=== PATIENT | female | born 1990 | race African-American/Black ===

== ENCOUNTER 2022-01-15 15:32 | Emergency (ER) | payer OTHER, SELFPAY ==
--- NOTE | 2022-01-15 15:38 | ED.NAVMDI ---
HPI - Nausea/Vomiting/Diarrhea General Chief complaint: Nausea/Vomiting/Diarrhea <GRAZYNA Geiger Last Filed: 01/15/22 15:46> Stated complaint: vomiting <GRAZYNA Geiger Last Filed: 01/15/22 15:46> Time Seen by Provider: 01/15/22 17:45 <GRAZYNA Geiger Last Filed: 01/15/22 15:46> History of Present Illness HPI Narrative: Patient complained of several episodes of vomiting briefly this morning after she took Motrin for menstrual cramps, she came to the ER and was given a Zofran several hours ago and all symptoms resolved and she has been eating drinking and feels fine and is asymptomatic when I came to evaluate her She does not feel dizzy or weak, she has no nausea she has not vomited in as many hours and she never had diarrhea and she has no abdominal pain <GRAZYNA Parker Last Filed: 01/15/22 19:13> Related Data Home medications: Previous Rx's Medication Instructions Recorded ondansetron 4 mg disintegrating 4 mg PO Q6-8H PRN nausea and 01/15/22 tablet vomiting #10 tabs <GRAZYNA Geiger Last Filed: 01/15/22 15:46> Allergies/Adverse reactions: Allergies Allergy/AdvReac Type Severity Reaction Status Date / Time No Known Allergies Allergy Verified 01/15/22 15:43 <GRAZYNA Geiger Last Filed: 01/15/22 15:46> Review of Systems Review of Systems: Resolved episode of vomiting is the positive Negatives are no fever no chills no dizziness no weakness no fainting no feeling faint no headache no neck pain no stiff neck no chest pain no shortness of breath no abdominal pain no nausea vomiting or diarrhea, no dysuria no frequency <GRAZYNA Parker Last Filed: 01/15/22 19:13> Yes all other systems are reviewed and are negative <GRAZYNA Parker Last Filed: 01/15/22 19:13> [facility] Past Medical History Source: nursing notes reviewed <GRAZYNA Parker Last Filed: 01/15/22 19:13> Social History Social History: Social History Advance Directives: No Advance Directives Information Provided: Yes <GRAZYNA Geiger Last Filed: 01/15/22 15:46> Physical Exam Vital Signs: Vital Signs: Last Vital Signs Temp 97.0 F 01/15/22 15:40 Pulse 66 01/15/22 15:40 Resp 22 H 01/15/22 15:40 BP 136/75 01/15/22 15:40 Pulse Ox 99 01/15/22 15:40 O2 Del Method 01/15/22 15:40 BMI result Body Mass Index 26.4 <GRAZYNA Geiger - Last Filed: 01/15/22 15:46> Vital Signs: Last Vital Signs Temp 97.0 F 01/15/22 15:40 Pulse 66 01/15/22 15:40 Resp 22 H 01/15/22 15:40 BP 136/75 01/15/22 15:40 Pulse Ox 99 01/15/22 15:40 O2 Del Method 01/15/22 15:40 BMI result Body Mass Index 26.4 <GRAZYNA Parker - Last Filed: 01/15/22 19:13> General appearance comfortable cooperative cheerful and relaxed The eyes anicteric no pallor The pharynx no redness swelling or exudate, mucous membranes are moist Neck is supple Chest is clear to auscultation bilateral Abdomen is soft and nontender Extremities full range of motion x4 Skin no rash Neuro no focal deficits <GRAZYNA Parker - Last Filed: 01/15/22 19:13> Course Course Course Narrative: YAA--31yo F presenting to the ED c/o nausea and vomiting since this morning s/p taking Advil on an empty stomach. Denies fever, chills, abdominal pain, dysuria/hematuria, EtOH or drug use Patient anxious and hyperventilating/thrashing around in triage, abdomen is soft and nontender. Is vomiting bile. Labs, UA, drug screen, IVF, Zofran, GI cocktail ordered <GRAZYNA Geiger - Last Filed: 01/15/22 15:46> RME--31yo F presenting to the ED c/o nausea and vomiting since this morning s/p taking Advil on an empty stomach. Denies fever, chills, abdominal pain, dysuria/hematuria, EtOH or drug use Patient anxious and hyperventilating/thrashing around in triage, abdomen is soft and nontender. Is vomiting bile. Labs, UA, drug screen, IVF, Zofran, GI cocktail ordered Patient is asymptomatic eating potato chips drinking a beverage playing with her child laughing and smiling A repeat abdominal exam is nontender Review of labs found no significant abnormality and well-appearing patient was discharged at this time easily tolerating p.o. and with no complaint <GRAZYNA Parker - Last Filed: 01/15/22 19:13> Medications Administered Discontinued Medications Generic Name Dose Route Start Last Admin Trade Name Freq PRN Reason Stop Dose Admin Al Hydroxide/Mg Hydroxide 30 ml 01/15/22 15:43 01/15/22 18:26 Magnesium Hydrox/Alum Hydrox 30 Ml Oral.Susp PO 01/15/22 15:44 Not Given ONCE ONE Famotidine 20 mg 01/15/22 15:43 01/15/22 18:26 Famotidine/Pf 20 Mg/2 Ml Vial IVPUSH 01/15/22 15:44 Not Given ONCE ONE Sodium Chloride 1,000 mls @ 999 mls/hr 01/15/22 15:45 01/15/22 18:26 Ns IV 01/15/22 16:45 Not Given .Q1H1M CAROLYN Ondansetron HCl 4 mg 01/15/22 15:43 01/15/22 15:49 Ondansetron Odt 4 Mg Tab.Rapdis TRANSLINGU 01/15/22 15:44 4 mg ONCE ONE Administration <GRAZYNA Geiger - Last Filed: 01/15/22 15:46> Medications Administered Discontinued Medications Generic Name Dose Route Start Last Admin Trade Name Freq PRN Reason Stop Dose Admin Al Hydroxide/Mg Hydroxide 30 ml 01/15/22 15:43 01/15/22 18:26 Magnesium Hydrox/Alum Hydrox 30 Ml Oral.Susp PO 01/15/22 15:44 Not Given ONCE ONE Famotidine 20 mg 01/15/22 15:43 01/15/22 18:26 Famotidine/Pf 20 Mg/2 Ml Vial IVPUSH 01/15/22 15:44 Not Given ONCE ONE Sodium Chloride 1,000 mls @ 999 mls/hr 01/15/22 15:45 01/15/22 18:26 Ns IV 01/15/22 16:45 Not Given .Q1H1M ACROLYN Ondansetron HCl 4 mg 01/15/22 15:43 01/15/22 15:49 Ondansetron Odt 4 Mg Tab.Keny GAYLEINGU 01/15/22 15:44 4 mg ONCE ONE Administration <GRAZYNA Parker - Last Filed: 01/15/22 19:13> MDM - Nausea/Vomiting/Diarrhea Lab Data Attestation: I reviewed the patient's lab results. <GRAZYNA Parker - Last Filed: 01/15/22 19:13> Result diagrams: : 01/15/22 16:35 01/15/22 16:35 <GRAZYNA Geiger - Last Filed: 01/15/22 15:46> Labs: Lab Results 01/15/22 01/15/22 01/15/22 Range/Units 16:35 16:35 16:35 WBC 7.5 (4.8-10.8) X10*3/uL RBC 4.80 (4.20-5.50) X10*6/uL Hgb 12.2 (12.0-16.0) g/dl Hct 38.1 (37.0-47.0) % MCV 79.4 L (80.0-98.0) fL MCH 25.4 L (27.0-33.0) pg MCHC 32.0 (31.0-35.0) g/dl RDW 15.4 (11.0-16.0) % Plt Count 281 (160-400) X10*3/uL MPV 9.7 (9.4-12.3) fL Immature Gran % (Auto) 0.3 (0.0-0.4) % Neut % (Auto) 83.1 H (45-73) % Lymph % (Auto) 12.7 L (20-40) % Kent % (Auto) 3.5 (2-11) % Eos % (Auto) 0.0 (0-4) % Baso % (Auto) 0.4 (0-2) % Lymph # (Auto) 1.0 L (1.2-4.9) X10*3/uL Kent # (Auto) 0.3 (0.1-1.2) X10*3/uL Eos # (Auto) 0.0 (0.0-0.4) X10*3/uL Baso # (Auto) 0.0 (0.0-0.2) X10*3/uL Abs Immat Gran (auto) 0.02 (0.00-0.03) X10*3/uL Absolute Neuts (auto) 6.2 (2.0-8.3) x10*3/uL Absolute Nucleated RBC 0.000 (0.0-0.012) X10*3/uL Nucleated RBC % (auto) 0.0 (0.0-0.2) /100WBC Sodium 140 (135-145) mmol/L Potassium 4.1 (3.3-5.1) mmol/L Chloride 107 (96-108) mmol/L Carbon Dioxide 20 L (22-29) mmol/L Anion Gap 17 (12-20) BUN 15 (9-16) mg/dL Creatinine 0.87 (0.5-1.4) mg/dL Estim Creat Clear Calc 75.9 Estimated GFR > 60 Random Glucose 105 (60-115) mg/dL Calcium 10.3 H (8.4-10.2) mg/dL Magnesium 1.8 (1.6-2.6) mg/dL Total Bilirubin 0.6 (0.0-1.0) mg/dL Direct Bilirubin 0.3 (0.0-0.5) mg/dL AST 24 (5-31) U/L ALT 14 (0-31) U/L Alkaline Phosphatase 69 (39-117) U/L Total Protein 8.2 H (6.5-8.0) g/dL Albumin 4.8 (3.5-5.0) g/dL Lipase 24 (8-78) U/L Urine Color Dark Yellow Urine Appearance Hazy Urine pH 6.0 (5.0-9.0) Ur Specific Baylis >= 1.030 H (1.005-1.025) Urine Protein 30 (1+) H (Neg-Trace) mg/dL Urine Glucose (UA) Negative (Negative) mg/dL Urine Ketones 15 (Negative) mg/dL Urine Blood Large (3+) H (Negative) Urine Nitrite Negative (Negative) Ur Leukocyte Esterase Small (1+) H (Negative) Urine RBC >20 H (0-2) /HPF Urine WBC 11-20 H (0-5) /HPF Ur Squamous Epith Cells 0-2 (0-2) /HPF Urine Bacteria None Seen (None Seen) Hyaline Casts 0-2 (0-2) /LPF Urine Test (NEGATIVE) Urine Opiates Screen (Not Detect) Urine Fentanyl Screen (Not Detect) Ur Barbiturates Screen (Not Detect) Ur Phencyclidine Scrn (Not Detect) Ur Amphetamines Screen (Not Detect) U Benzodiazepines Scrn (Not Detect) Urine Cocaine Screen (Not Detect) U Marijuana (THC) Screen (Not Detect) 01/15/22 01/15/22 Range/Units 16:35 16:35 WBC (4.8-10.8) X10*3/uL RBC (4.20-5.50) X10*6/uL Hgb (12.0-16.0) g/dl Hct (37.0-47.0) % MCV (80.0-98.0) fL MCH (27.0-33.0) pg MCHC (31.0-35.0) g/dl RDW (11.0-16.0) % Plt Count (160-400) X10*3/uL MPV (9.4-12.3) fL Immature Gran % (Auto) (0.0-0.4) % Neut % (Auto) (45-73) % Lymph % (Auto) (20-40) % Kent % (Auto) (2-11) % Eos % (Auto) (0-4) % Baso % (Auto) (0-2) % Lymph # (Auto) (1.2-4.9) X10*3/uL Kent # (Auto) (0.1-1.2) X10*3/uL Eos # (Auto) (0.0-0.4) X10*3/uL Baso # (Auto) (0.0-0.2) X10*3/uL Abs Immat Gran (auto) (0.00-0.03) X10*3/uL Absolute Neuts (auto) (2.0-8.3) x10*3/uL Absolute Nucleated RBC (0.0-0.012) X10*3/uL Nucleated RBC % (auto) (0.0-0.2) /100WBC Sodium (135-145) mmol/L Potassium (3.3-5.1) mmol/L Chloride (96-108) mmol/L Carbon Dioxide (22-29) mmol/L Anion Gap (12-20) BUN (9-16) mg/dL Creatinine (0.5-1.4) mg/dL Estim Creat Clear Calc Estimated GFR Random Glucose (60-115) mg/dL Calcium (8.4-10.2) mg/dL Magnesium (1.6-2.6) mg/dL Total Bilirubin (0.0-1.0) mg/dL Direct Bilirubin (0.0-0.5) mg/dL AST (5-31) U/L ALT (0-31) U/L Alkaline Phosphatase (39-117) U/L Total Protein (6.5-8.0) g/dL Albumin (3.5-5.0) g/dL Lipase (8-78) U/L Urine Color Urine Appearance Urine pH (5.0-9.0) Ur Specific Baylis (1.005-1.025) Urine Protein (Neg-Trace) mg/dL Urine Glucose (UA) (Negative) mg/dL Urine Ketones (Negative) mg/dL Urine Blood (Negative) Urine Nitrite (Negative) Ur Leukocyte Esterase (Negative) Urine RBC (0-2) /HPF Urine WBC (0-5) /HPF Ur Squamous Epith Cells (0-2) /HPF Urine Bacteria (None Seen) Hyaline Casts (0-2) /LPF Urine Test NEGATIVE (NEGATIVE) Urine Opiates Screen Not Detected (Not Detect) Urine Fentanyl Screen Not Detected (Not Detect) Ur Barbiturates Screen Not Detected (Not Detect) Ur Phencyclidine Scrn Not Detected (Not Detect) Ur Amphetamines Screen Not Detected (Not Detect) U Benzodiazepines Scrn Not Detected (Not Detect) Urine Cocaine Screen Not Detected (Not Detect) U Marijuana (THC) Screen POSITIVE H (Not Detect) <GRAZYNA Geiger - Last Filed: 01/15/22 15:46> Lab Results 01/15/22 01/15/22 01/15/22 Range/Units 16:35 16:35 16:35 WBC 7.5 (4.8-10.8) X10*3/uL RBC 4.80 (4.20-5.50) X10*6/uL Hgb 12.2 (12.0-16.0) g/dl Hct 38.1 (37.0-47.0) % MCV 79.4 L (80.0-98.0) fL MCH 25.4 L (27.0-33.0) pg MCHC 32.0 (31.0-35.0) g/dl RDW 15.4 (11.0-16.0) % Plt Count 281 (160-400) X10*3/uL MPV 9.7 (9.4-12.3) fL Immature Gran % (Auto) 0.3 (0.0-0.4) % Neut % (Auto) 83.1 H (45-73) % Lymph % (Auto) 12.7 L (20-40) % Kent % (Auto) 3.5 (2-11) % Eos % (Auto) 0.0 (0-4) % Baso % (Auto) 0.4 (0-2) % Lymph # (Auto) 1.0 L (1.2-4.9) X10*3/uL Kent # (Auto) 0.3 (0.1-1.2) X10*3/uL Eos # (Auto) 0.0 (0.0-0.4) X10*3/uL Baso # (Auto) 0.0 (0.0-0.2) X10*3/uL Abs Immat Gran (auto) 0.02 (0.00-0.03) X10*3/uL Absolute Neuts (auto) 6.2 (2.0-8.3) x10*3/uL Absolute Nucleated RBC 0.000 (0.0-0.012) X10*3/uL Nucleated RBC % (auto) 0.0 (0.0-0.2) /100WBC Sodium 140 (135-145) mmol/L Potassium 4.1 (3.3-5.1) mmol/L Chloride 107 (96-108) mmol/L Carbon Dioxide 20 L (22-29) mmol/L Anion Gap 17 (12-20) BUN 15 (9-16) mg/dL Creatinine 0.87 (0.5-1.4) mg/dL Estim Creat Clear Calc 75.9 Estimated GFR > 60 Random Glucose 105 (60-115) mg/dL Calcium 10.3 H (8.4-10.2) mg/dL Magnesium 1.8 (1.6-2.6) mg/dL Total Bilirubin 0.6 (0.0-1.0) mg/dL Direct Bilirubin 0.3 (0.0-0.5) mg/dL AST 24 (5-31) U/L ALT 14 (0-31) U/L Alkaline Phosphatase 69 (39-117) U/L Total Protein 8.2 H (6.5-8.0) g/dL Albumin 4.8 (3.5-5.0) g/dL Lipase 24 (8-78) U/L Urine Color Dark Yellow Urine Appearance Hazy Urine pH 6.0 (5.0-9.0) Ur Specific Baylis >= 1.030 H (1.005-1.025) Urine Protein 30 (1+) H (Neg-Trace) mg/dL Urine Glucose (UA) Negative (Negative) mg/dL Urine Ketones 15 (Negative) mg/dL Urine Blood Large (3+) H (Negative) Urine Nitrite Negative (Negative) Ur Leukocyte Esterase Small (1+) H (Negative) Urine RBC >20 H (0-2) /HPF Urine WBC 11-20 H (0-5) /HPF Ur Squamous Epith Cells 0-2 (0-2) /HPF Urine Bacteria None Seen (None Seen) Hyaline Casts 0-2 (0-2) /LPF Urine Test (NEGATIVE) Urine Opiates Screen (Not Detect) Urine Fentanyl Screen (Not Detect) Ur Barbiturates Screen (Not Detect) Ur Phencyclidine Scrn (Not Detect) Ur Amphetamines Screen (Not Detect) U Benzodiazepines Scrn (Not Detect) Urine Cocaine Screen (Not Detect) U Marijuana (THC) Screen (Not Detect) 01/15/22 01/15/22 Range/Units 16:35 16:35 WBC (4.8-10.8) X10*3/uL RBC (4.20-5.50) X10*6/uL Hgb (12.0-16.0) g/dl Hct (37.0-47.0) % MCV (80.0-98.0) fL MCH (27.0-33.0) pg MCHC (31.0-35.0) g/dl RDW (11.0-16.0) % Plt Count (160-400) X10*3/uL MPV (9.4-12.3) fL Immature Gran % (Auto) (0.0-0.4) % Neut % (Auto) (45-73) % Lymph % (Auto) (20-40) % Kent % (Auto) (2-11) % Eos % (Auto) (0-4) % Baso % (Auto) (0-2) % Lymph # (Auto) (1.2-4.9) X10*3/uL Kent # (Auto) (0.1-1.2) X10*3/uL Eos # (Auto) (0.0-0.4) X10*3/uL Baso # (Auto) (0.0-0.2) X10*3/uL Abs Immat Gran (auto) (0.00-0.03) X10*3/uL Absolute Neuts (auto) (2.0-8.3) x10*3/uL Absolute Nucleated RBC (0.0-0.012) X10*3/uL Nucleated RBC % (auto) (0.0-0.2) /100WBC Sodium (135-145) mmol/L Potassium (3.3-5.1) mmol/L Chloride (96-108) mmol/L Carbon Dioxide (22-29) mmol/L Anion Gap (12-20) BUN (9-16) mg/dL Creatinine (0.5-1.4) mg/dL Estim Creat Clear Calc Estimated GFR Random Glucose (60-115) mg/dL Calcium (8.4-10.2) mg/dL Magnesium (1.6-2.6) mg/dL Total Bilirubin (0.0-1.0) mg/dL Direct Bilirubin (0.0-0.5) mg/dL AST (5-31) U/L ALT (0-31) U/L Alkaline Phosphatase (39-117) U/L Total Protein (6.5-8.0) g/dL Albumin (3.5-5.0) g/dL Lipase (8-78) U/L Urine Color Urine Appearance Urine pH (5.0-9.0) Ur Specific [place]lis (1.005-1.025) Urine Protein (Neg-Trace) mg/dL Urine Glucose (UA) (Negative) mg/dL Urine Ketones (Negative) mg/dL Urine Blood (Negative) Urine Nitrite (Negative) Ur Leukocyte Esterase (Negative) Urine RBC (0-2) /HPF Urine WBC (0-5) /HPF Ur Squamous Epith Cells (0-2) /HPF Urine Bacteria (None Seen) Hyaline Casts (0-2) /LPF Urine Test NEGATIVE (NEGATIVE) Urine Opiates Screen Not Detected (Not Detect) Urine Fentanyl Screen Not Detected (Not Detect) Ur Barbiturates Screen Not Detected (Not Detect) Ur Phencyclidine Scrn Not Detected (Not Detect) Ur Amphetamines Screen Not Detected (Not Detect) U Benzodiazepines Scrn Not Detected (Not Detect) Urine Cocaine Screen Not Detected (Not Detect) U Marijuana (THC) Screen POSITIVE H (Not Detect) <GRAZYNA Parker - Last Filed: 01/15/22 19:13> Discharge Plan Discharge Clinical Impression: Vomiting <GRAZYNA Geiger Last Filed: 01/15/22 15:46> Patient Disposition: Home, Self-Care <GRAZYNA Geiger Last Filed: 01/15/22 15:46> Additional Instructions: Right now the vomiting is gone, you have been eating and drinking and feel fine It is possible that the vomiting episode was from taking Motrin on an empty stomach, so it take a little bit of food when you take Motrin Drink plenty of fluids Return to the ER any time for any worse condition or any concerns If needed in the future I wrote for some nausea pills called Zofran <GRAZYNA Geiger Last Filed: 01/15/22 15:46> Prescriptions: New ondansetron 4 mg tablet,disintegrating 4 mg PO Q6-8H PRN (Reason: nausea and vomiting) Qty: 10 0RF <GRAZYNA Geiger Last Filed: 01/15/22 15:46> Interventions: ED Discharge Assessment Last Done: 01/15/22 18:28 <GRAZYNA Geiger Last Filed: 01/15/22 15:46> Discharge Date/Time: 01/15/22 18:28 <GRAZYNA Geiger Last Filed: 01/15/22 15:46>
[2022-01-15 15:40] VITALS: BP 136/75; PULSE 66; RESP 22; TEMP 36.1; O2SAT 99; BMI 26.4
[2022-01-15] MEDS: Ondansetron ODT 4 MG TAB.RAPDIS TRANSLINGU (15:49)
[2022-01-15 16:41] LABS: MANUAL DIFF FLAG NO
[2022-01-15 16:43] LABS: Basophils Percent Auto 0.4 % (0-2); Hematocrit 38.1 % (37.0-47.0); Hemoglobin 12.2 g/dl (12.0-16.0); Imm Gran Abs Auto 0.02 X10*3/uL (0.00-0.03); Imm Gran Pct Auto 0.3 % (0.0-0.4); Lymphocytes Percent Auto 12.7 % (20-40); Mean Corpuscular Hemoglobin 25.4 pg (27.0-33.0); Mean Corpuscular Volume 79.4 fL (80.0-98.0); Mean Platelet Volume 9.7 fL (9.4-12.3); Monocytes Absolute Auto 0.3 X10*3/uL (0.1-1.2); Monocytes Percent Auto 3.5 % (2-11); Neutrophils Absolute Auto 6.2 x10*3/uL (2.0-8.3); Neutrophils Percent Auto 83.1 % (45-73); Platelet Count 281 X10*3/uL (160-400); Red Cell Distribution Width 15.4 % (11.0-16.0); White Blood Count 7.5 X10*3/uL (4.8-10.8)
[2022-01-15 16:56] LABS: Amphetamine Screen Urine Not Detected (Not Detect); Barbiturates, Urine Not Detected (Not Detect); Benzodiazepines Screen Urine Not Detected (Not Detect); Cannabinoid Screen Urine POSITIVE (Not Detect); Cocaine Screen Urine Not Detected (Not Detect); Fentanyl, urine Not Detected (Not Detect); Opiate Screen Urine Not Detected (Not Detect); Phencyclidine Screen Urine Not Detected (Not Detect)
[2022-01-15 16:58] LABS: UPreg QC Valid YES; Urine Pregnancy NEGATIVE (NEGATIVE)
[2022-01-15 17:03] LABS: Alanine Aminotransferase 14 U/L (0-31); Alkaline Phosphatase 69 U/L (39-117); Anion Gap 17 (12-20); Aspartate Amino Transferase 24 U/L (5-31); Bilirubin Direct 0.3 mg/dL (0.0-0.5); Bilirubin Total 0.6 mg/dL (0.0-1.0); Blood Urea Nitrogen 15 mg/dL (9-16); Calcium 10.3 mg/dL (8.4-10.2); Carbon Dioxide 20 mmol/L (22-29); Chloride 107 mmol/L (96-108); Creatinine Clr Calc Pharmacy 75.9; Estimated Glomerular Filt Rate > 60; Glucose Random 105 mg/dL (60-115); Lipase 24 U/L (8-78); Magnesium 1.8 mg/dL (1.6-2.6); Potassium 4.1 mmol/L (3.3-5.1); Sodium 140 mmol/L (135-145); Total Protein 8.2 g/dL (6.5-8.0)
[2022-01-15 17:10] LABS: Albumin Level 4.8 g/dL (3.5-5.0)
[2022-01-15 17:11] LABS: Color Urine Dark Yellow; Glucose Urine UA Negative (Negative); Leukocyte Esterase Urine Small (1+) (Negative); Nitrite Urine Negative (Negative); UMIC TRIGGER UACC YES; Urine Blood Large (3+) (Negative); Urine Ketones 15 mg/dL (Negative); Urine Protein 30 (1+) mg/dL (Neg-Trace)
[2022-01-15 17:40] LABS: Bacteria Urine None Seen (None Seen); Hyaline Casts Urine 0-2 /LPF (0-2); RBC Urine >20 /HPF (0-2); Squamous Epithelial Cell Urine 0-2 /HPF (0-2); UACC Culture Trigger YES
[2022-01-15 17:41] LABS: Specific Gravity - Urine >= 1.030 (1.005-1.025)
[2022-01-15 18:01] LABS: Appearance Urine Hazy
--- NOTE | 2022-01-15 18:27 | PC.NURSE ---
Medications not given per GRAZYNA Packer. Medications were ordered in triage prior to pt getting a room. When pt got to room, provider felt that pt did not need the medications
== END 2022-01-15 18:28 | disposition home or self-care (01) ==
PROVIDERS: Physician Assistant; Emergency Provider Emergency Medicine
DX: R11.2 Nausea with vomiting, unspecified (principal); R19.7 Diarrhea, unspecified; Z79.899 Other long term (current) drug therapy
CPT/HCPCS: 36415; 80048; 80076; 80307; 81001; 81003; 81025; 83690; 83735; 85025; 87086; 99282; 99283

== ENCOUNTER 2022-09-30 22:59 | Emergency (ER) | payer OTHER, SELFPAY ==
[2022-09-30 23:12] VITALS: BP 120/81; PULSE 69; RESP 18; TEMP 36.8; O2SAT 100; BMI 23.4
[2022-10-01 00:31] VITALS: BP 126/77; PULSE 61; RESP 14; TEMP 36.7; O2SAT 99
--- NOTE | 2022-10-01 01:29 | ED.HA ---
HPI - Headache General Chief Complaint: Headache Stated Complaint: migraine, vomiting Time Seen by Provider: 10/01/22 01:08 Source: patient Mode of arrival: ambulatory Limitations: no limitations History of Present Illness HPI Narrative: Patient history of migraine headache been having headache for last 2 days localized mostly in frontal bilateral temporal associated with nausea and photosensitivity vomited once Related Data Previous Rx's Medication Instructions Recorded ondansetron 4 mg disintegrating 4 mg PO Q6-8H PRN nausea and 01/15/22 tablet vomiting #10 tabs [id number]-[id number]-[id number] 1 tab PO Q6H PRN pain #20 tabs 10/01/22 50 mg-325 mg-40 mg tablet ondansetron 4 mg disintegrating 4 mg PO Q6-8H PRN nausea and 10/01/22 tablet vomiting #10 tabs sumatriptan succinate 50 mg tablet 50 mg PO Q2H PRN migraine headache 10/01/22 (Imitrex) #10 tabs Allergies Allergy/AdvReac Type Severity Reaction Status Date / Time No Known Allergies Allergy Verified 09/30/22 23:15 Review of Systems Review of Systems: Yes all other systems are reviewed and are negative [facility] Social History Social History Smoked in Last 30 Days: No Use of substances other than those prescribed or required for medical reasons: Yes Substance Use Type: Marijuana Advance Directives: No Advance Directives Information Provided: No Physical Exam Vital Signs: Vital Signs: Last Vital Signs Temp 98.0 F 10/01/22 00:31 Pulse 61 10/01/22 00:31 Resp 14 10/01/22 00:31 BP 126/77 10/01/22 00:31 Pulse Ox 99 10/01/22 00:31 O2 Del Method Room Air 10/01/22 00:31 BMI result Body Mass Index 23.4 Appearance: Alert. Oriented X3. No acute distress. Eyes: PERRLA, No Nystagmus ENT: Pharynx normal. Oral Mucosa moist no temporal artery tenderness Neck: Normal inspection. Neck supple. CVS: Normal heart rate and rhythm. Pulses normal. Respiratory: No respiratory distress. Equal air entry bilateral, no wheezing/rales/rhonchi Abdomen: Soft and nontender. Bowel sounds are present, no mass palpable, no CVA tenderness Skin: Skin warm and dry. Normal skin color. Normal skin turgor. Extremities: No lower extremity edema. No calf tenderness Neuro: Oriented X 3. No motor deficit. No sensory deficit.No cerebellar signs , cranial nerves II-XII intact Medications Administered Discontinued Medications Generic Name Dose Route Start Last Admin Trade Name Freq PRN Reason Stop Dose Admin Acetaminophen/Butalbital/Caffeine 1 tab 10/01/22 01:33 10/01/22 01:58 Butalb/Acetamin/Caff 50/325/40 Tablet PO 10/01/22 01:34 1 tab ONCE ONE Administration Ondansetron HCl 4 mg 10/01/22 01:33 10/01/22 01:58 Ondansetron Odt 4 Mg Tab.Rapdis TRANSLINGU 10/01/22 01:34 4 mg ONCE ONE Administration Sumatriptan Succinate 6 mg 10/01/22 01:33 10/01/22 01:58 Sumatriptan Succinate 6 Mg/0.5 Ml Vial SUBCUT 10/01/22 01:34 6 mg ONCE ONE Administration Medical Decision Making Medical Decision Making MDM Narrative: Patient migraine headache feeling much better after Imitrex and Fioricet discharge patient home Discharge Plan Discharge Clinical Impression: Migraine Patient Disposition: Home, Self-Care Instructions: Migraine Headache (ED) Additional Instructions: Take Imitrex as prescribed Fioricet for persistent headache Medicine for nausea and follow with PCP Prescriptions: New sumatriptan succinate [Imitrex] 50 mg tablet 50 mg PO Q2H PRN (Reason: migraine headache) Qty: 10 0RF Rx Instructions: do not exceed 2 doses per 24 hrs uxydgujrok-eowcyiofqgxom-krjw 50-325-40 mg tablet 1 tab PO Q6H PRN (Reason: pain) Qty: 20 0RF ondansetron 4 mg tablet,disintegrating 4 mg PO Q6-8H PRN (Reason: nausea and vomiting) Qty: 10 0RF No Action ondansetron 4 mg tablet,disintegrating 4 mg PO Q6-8H PRN (Reason: nausea and vomiting) Qty: 10 0RF
[2022-10-01] MEDS: SUMAtriptan succinate 6 MG/0.5 ML VIAL SUBCUT (01:58)
[2022-10-01] MEDS: Butalb/Acetamin/Caff 50/325/40 TABLET 1 TAB PO (01:58)
[2022-10-01] MEDS: Ondansetron ODT 4 MG TAB.RAPDIS TRANSLINGU (01:58)
--- NOTE | 2022-10-01 02:06 | PC.NURSE ---
pt medicated according to apr. lights dimmed. pt calm and cooperative
== END 2022-10-01 02:54 | disposition home or self-care (01) ==
PROVIDERS: Emergency Provider Internal Medicine
DX: G43.909 Migraine, unspecified, not intractable, without status migrainosus (principal); Z79.899 Other long term (current) drug therapy
CPT/HCPCS: 96372; 99284; J3030

== ENCOUNTER 2023-02-25 18:35 | Emergency (ER) | payer OTHER, SELFPAY ==
--- NOTE | ~2023-02-25 | XR_ITS ---
EXAMINATION: CHEST 2 VIEWS CLINICAL INFORMATION: productive cough. COMPARISON: No recent pertinent prior studies are available for comparison. TECHNIQUE: PA and lateral views of the chest obtained. FINDINGS: The lungs are well expanded. No focal infiltrate, effusion, edema, or pneumothorax. Cardiac and mediastinal silhouettes are within normal limits for technique. No acute bony abnormality seen XR/XR chest 2V IMPRESSION: No evidence of acute disease
--- NOTE | 2023-02-25 18:37 | ECG_ITS ---
Test Reason : COUGH/CHEST PAIN Blood Pressure : / mmHG Vent. Rate : 063 BPM Atrial Rate : 063 BPM P-R Int : 158 ms QRS Dur : 082 ms QT Int : 378 ms P-R-T Axes : 043 -06 022 degrees QTc Int : 386 ms Normal sinus rhythm with sinus arrhythmia Possible Anterior infarct , age undetermined - could be related to body habitus and lead placement Abnormal ECG No previous ECGs available Referred By: Generic ED Physician Electronically Signed By:FLOR MEJIA
--- NOTE | 2023-02-25 18:47 | ED_ITS ---
HPI - General Adult General Chief complaint: Upper Respiratory Symptoms Stated complaint: chills, headache, CP, hot/ cold Time Seen by Provider: 02/25/23 21:26 Source: patient Mode of arrival: ambulatory Limitations: no limitations History of Present Illness HPI narrative: Patient is a 32 year old assigned female at with no reported medical history presenting to the emergency department today with a cough, chills, and a sore throat. Patient states that over the last few days she has had a cough, sore throat, and chills. Patient denies any dizziness, lightheadedness, abdominal pain, nausea, vomiting, fever, blurry vision, double vision, loss of vision, chest pain, difficulty breathing, shortness of breath, back pain, night sweats, pain with urination, increased urinary frequency, increased urinary urge ncy, blood in her urine or stool, syncope or a near syncopal episode, recent trauma or falls, bowel incontinence, bladder incontinence, bowel retention, bladder retention, or any other complaints at this time. Onset (ago): day(s) Severity: mild Severity scale (1-10): 2 Relieving factors: none Exacerbating factors: none Associated symptoms: cough and fever/chills Treatments prior to arrival: other (currently on Z-pack) Related Data Previous Rx's Medication Instructions Recorded ondansetron 4 mg disintegrating 4 mg PO Q6-8H PRN nausea and 01/15/22 tablet vomiting #10 tabs nmhfvfwygh-bzyapshwoawob-nprfmkdu 1 tab PO Q6H PRN pain #20 tabs 10/01/22 50 mg-325 mg-40 mg tablet ondansetron 4 mg disintegrating 4 mg PO Q6-8H PRN nausea and 10/01/22 tablet vomiting #10 tabs sumatriptan succinate 50 mg tablet 50 mg PO Q2H PRN migraine headache 10/01/22 (Imitrex) #10 tabs oseltamivir 75 mg capsule (Tamiflu) 75 mg PO DAILY 5 days #5 caps 02/25/23 Allergies Allergy/AdvReac Type Severity Reaction Status Date / Time No Known Allergies Allergy Verified 02/25/23 18:51 Review of Systems Constitutional: Constitutional: Reports no additional constitutional complaints, Reports chills, Denies fever(s) and Denies night sweats Eyes: Eyes: Reports no additional eye complaints, Denies blurry vision, Denies change in vision, Denies diplopia, Denies eye discharge, Denies loss of vision and Denies eye pain ENT: Denies dizziness and Reports sore throat Cardiovascular: Cardiovascular: Reports no additional cardiovascular complaints, Denies chest pain, Denies lightheadedness, Denies Loss of Consciousness and Denies dyspnea Respiratory: Respiratory: Reports no additional respiratory complaints, Reports cough and Denies dyspnea Gastrointestinal: Gastrointestinal: Reports no additional gastrointestinal complaints, Denies abdominal pain, Denies melena, Denies hematochezia, Denies change in bowel habits and Denies change in stool character Genitourinary: Genitourinary: Denies hematuria, Denies urinary frequency, Denies dysuria, Denies urinary incontinence, Denies urinary hesitancy and Denies urinary urgency Musculoskeletal: Musculoskeletal: Reports no additional musculoskeletal complaints, Denies numbness and Denies tingling Neurologic: Denies dizziness, Denies loss of vision, Denies numbness and Denies tingling Psychiatric: Psychiatric: Reports no additional psychiatric complaints Endocrine: Endocrine: Reports no additional endocrine complaints Hematologic/Lymphatic: Hematologic/Lymphatic: Reports no additional hematologic/lymphatic complaints Allergic/Immunologic: Allergic/Immunologic: Reports no additional allergic/immunologic complaints PMFSH Past Medical History Attestation statement: The following information was validated with the patient. Source: old records reviewed and nursing notes reviewed Social History Social History Smoked in Last 30 Days: No Use of substances other than those prescribed or required for medical reasons: No Substance Use Type: Marijuana Advance Directives: No Advance Directives Information Provided: No Patient : No Physical Exam ED Vital Signs: Vital Signs - 24 hr 02/25/23 18:49 02/25/23 20:52 02/25/23 20:52 Temperature 100.8 F H 98.8 F Pulse Rate 69 58 Respiratory Rate 20 16 Blood Pressure 139/64 110/69 Pulse Oximetry 99 100 97 Oxygen Delivery Method Room Air Room Air Room Air BMI result Body Mass Index 21.7 Const General: cooperative, no acute distress, alert and awake Nutritional Appearance: well nourished Orientation/consciousness: patient oriented x3 Limitations: no limitations HENMT Head: Yes normal to inspection and Yes atraumatic Ears: hearing grossly normal bilaterally and external ears normal General nose exam: Normal external nose present, no nasal discharge noted and no epistaxis Face and sinus: Yes normal facial exam, No abrasion and No laceration Mouth: Normal oral and palatal mucosa present, no drooling and no muffled voice Eyes General: appearance normal, both eyes and all related structures Periorbital: periorbital findings normal Eyelids: Yes eyelids normal Conjunctivae: conjunctivae normal Pupils: Equal, round and reactive pupils present EOM: EOMs intact bilaterally Neck Neck: Yes normal visual inspection, Yes full ROM and Yes no lymphadenopathy Chest Chest palpation & inspection: normal inspection of the chest Resp Effort & Inspection: normal respiratory effort and able to speak in complete sentences GI Inspection: Yes normal to inspection Neuro General: patient oriented x3 and moves all extremities Cranial nerves: Yes Equal, round and reactive pupils present Cognition (Neuro): normal cognition Motor exam (neuro): 5/5 motor strength present throughout Sensory Exam: Normal double simultaneous stimulation for sensation Coordination: bzjlwy-pq-qayn test normal Extrem General: Yes normal to inspection, Yes full ROM and Yes capillary refill normal Psych Appearance: grossly normal Mental Status: mental status grossly normal Affect: normal affect Attitude: cooperative Thought process: Normal thought process present Thought content: Normal thought content present Insight: Good insight present (Psych) Course Course Course Narrative: RME:?32 yo female here w/ chills, headache, cough productive of yellow sputum, body aches. endorses chest discomfort with coughing only. no chest pain. Reports sore throat last week. Seen at for this, taking zpak, 3 more doses left. Taking zyrtec at home. one episode of vomiting this morning. +sick contacts at work. febriile in triage. plan for serology, CXR, tylenol Full HPI, ROS and PE to be performed by the primary ED provider. Medications Administered Discontinued Medications Generic Name Dose Route Start Last Admin Trade Name Freq PRN Reason Stop Dose Admin Acetaminophen 975 mg 02/25/23 18:49 02/25/23 18:54 Acetaminophen 325 Mg Tablet PO 02/25/23 18:50 975 mg ONCE ONE Administration Medical Decision Making Medical Decision Making [facility] Narrative: Patient is a 32 year old assigned female at with no reported medical history presenting to the emergency department today with a cough, chills, and sore throat. Patient's physical exam was unremarkable. Patient's chest x-ray showed no acute process. Patient's COVID-19 and RSV tests were negative. Patient's influenza test was positive. I explained my physical exam findings as well as all test results to the patient. I answered all questions asked by the patient. I stressed the importance of the patient taking her medication as prescribed. I stressed the importance of the patient following up with her primary care provider. I stressed the importance of the patient returning to the emergency department immediately if her symptoms were to worsen or if she were to develop any dizziness, shortness of breath, difficulty breathing, chest pain, blurry vision, loss of vision, nausea, vomiting, abdominal pain, fever, chills, back pain, or any other complaints. Patient verbalized agreement and understanding with this treatment plan and discharge. Differential Diagnosis Differential Diagnoses: The differential diagnosis associated with the presentation includes Cough COVID-19 RSV Influenza Viral illness Pharyngitis Admission/Observation Consideration of admission/observation: Escalation of care including admission/observation considered Patient would have been admitted to the hospital had her work up had any findings where hospital admission was appropriate and her clinical presentation warranted hospital admission. Lab Data [facility] Lab Attestation statement: I reviewed the patient's lab results. My interpretation of these results are in the [facility] Rationale portion of this note. Labs: Lab Results 02/25/23 Range/Units 19:17 Influenza Type A (PCR) POSITIVE A (Negative) Influenza Type B (PCR) NEGATIVE (Negative) RSV RNA Qual (PCR) NEGATIVE (Negative) SARS-CoV-2 RNA (RT-PCR) NEGATIVE (Negative) Independent Interpretation I performed an independent interpretation of an: Plain X-Ray Interpretation: My interpretation is in agreement with the radiologist's impression of this imaging study. EXAMINATION: CHEST 2 VIEWS CLINICAL INFORMATION: productive cough. COMPARISON: No recent pertinent prior studies are available for comparison. TECHNIQUE: PA and lateral views of the chest obtained. FINDINGS: The lungs are well expanded. No focal infiltrate, effusion, edema, or pneumothorax. Cardiac and mediastinal silhouettes are within normal limits for technique. No acute bony abnormality seen XR/XR chest 2V IMPRESSION: No evidence of acute disease Dictated By: Julito Willard MD Signed By: Electronically signed by Julito Willard MD 02/25/231942 Radiology Impression Discussion of test interpretation with radiology: I have reviewed the radiologist's reading. Prescription Management I considered prescription management with: Antiviral (patient prescribed tamiflu) Discharge Plan Discharge Clinical Impression: Influenza Patient Disposition: Home, Self-Care Instructions: Influenza (DC) Additional Instructions: Follow up with your primary care provider. Return to the emergency department immediately if your symptoms worsen or if you develop any dizziness, shortness of breath, difficulty breathing, chest pain, blurry vision, loss of vision, nausea, vomiting, abdominal pain, fever, chills, back pain, or any other complaints. Prescriptions: New oseltamivir [Tamiflu] 75 mg capsule 75 mg PO DAILY 5 Days Qty: 5 0RF No Action ondansetron 4 mg tablet,disintegrating 4 mg PO Q6-8H PRN (Reason: nausea and vomiting) Qty: 10 0RF sumatriptan succinate [Imitrex] 50 mg tablet 50 mg PO Q2H PRN (Reason: migraine headache) Qty: 10 0RF Rx Instructions: do not exceed 2 doses per 24 hrs zypklptzrz-cunwqxzscqhdc-jgie 50-325-40 mg tablet 1 tab PO Q6H PRN (Reason: pain) Qty: 20 0RF ondansetron 4 mg tablet,disintegrating 4 mg PO Q6-8H PRN (Reason: nausea and vomiting) Qty: 10 0RF Referrals: [facility] [place]] (Call to establish and follow up with a primary care provider. If you already have a primary care provider, please follow up with them.) [facility]] (Call to establish and follow up with a primary care provider. If you already have a primary care provider, please follow up with them.) [facility] [[facility]] (Call to establish and follow up with a primary care provider. If you already have a primary care provider, please follow up with them.) Stand Alone Forms: Work/School Release Interventions: ED Discharge Assessment Last Done: 02/25/23 22:25 Discharge Date/Time: 02/25/23 22:15 Print Language: Wolof
[2023-02-25 18:49] VITALS: BP 139/64; PULSE 69; RESP 20; TEMP 38.2; O2SAT 99; BMI 21.7
[2023-02-25] MEDS: Acetaminophen 325 MG TABLET 975 MG PO (18:54)
[2023-02-25 20:06] LABS: Influenza A PCR POSITIVE (Negative); Influenza B PCR NEGATIVE (Negative); Resp Syncy Virus RNA Qual PCR NEGATIVE (Negative); SARS COV2 PCR INHOUSE NEGATIVE (Negative)
[2023-02-25 20:52] VITALS: BP 110/69; PULSE 58; RESP 16; TEMP 37.1; O2SAT 100; O2SAT 97
--- NOTE | 2023-02-25 20:54 | PC.NURSE ---
a&ox4, vss and up to date. pt comes in today d/t UR sx x 1 week. pt went to urgent care - tested for flu last week but came back negative. pt now aware that results today are positive for flu. pt's oral temperature decreased to 98.8 post medication administration. pt awaiting to be seen by provider at this time. no sob/wob noted. respirations even and unlabored.call ulrich placed within reach.
== END 2023-02-25 22:15 | disposition home or self-care (01) ==
PROVIDERS: Physician Assistant Medical; Emergency Provider Emergency Medicine
DX: J10.1 Influenza due to other identified influenza virus with other respiratory manifestations (principal); R05.9 Cough, unspecified; R07.89 Other chest pain; I49.9 Cardiac arrhythmia, unspecified; R51.9 Headache, unspecified; Z20.822 Contact with and (suspected) exposure to COVID-19; Z20.828 Contact with and (suspected) exposure to other viral communicable diseases
CPT/HCPCS: 0241U; 71046; 93005; 99283; 99285

== ENCOUNTER → 2023-02-25 18:37 | Outpatient (BNV) | payer OTHER, SELFPAY | PROVIDERS: Emergency Provider Emergency Medicine; Visit Provider Internal Medicine | DX: R94.31 Abnormal electrocardiogram [ECG] [EKG] (principal); R07.9 Chest pain, unspecified | CPT/HCPCS: 93010 ==

== ENCOUNTER 2023-02-26 19:32 | Emergency (ER) | payer OTHER, SELFPAY ==
[2023-02-26 19:44] VITALS: BP 129/71; PULSE 86; RESP 18; TEMP 37.6; O2SAT 96; BMI 22.1
--- NOTE | 2023-02-26 19:44 | ED_ITS ---
HPI - General Adult General Chief complaint: Upper Respiratory Symptoms Stated complaint: fever, vomiting Time Seen by Provider: 02/26/23 21:09 Source: patient Limitations: no limitations History of Present Illness HPI narrative: 32-year-old female presents for evaluation of nausea vomiting. Patient states that she was diagnosed with influenza a yesterday, started on Tamiflu. Patient states she has been having intermittent episodes of nausea and vomiting that has progressively worsened since earlier today. She reports having similar symptoms last week but they improved. She has attempted to tolerate sips of fluids unsuccessfully. She denies any diarrhea. She reports positive sick contacts. Patient has otherwise been feeling well. She denies possibility of . Related Data Previous Rx's Medication Instructions Recorded ondansetron 4 mg disintegrating 4 mg PO Q6-8H PRN nausea and 01/15/22 tablet vomiting #10 tabs hnjpmsbbzr-pdusssyobrmbt-fyqotngv 1 tab PO Q6H PRN pain #20 tabs 10/01/22 50 mg-325 mg-40 mg tablet ondansetron 4 mg disintegrating 4 mg PO Q6-8H PRN nausea and 10/01/22 tablet vomiting #10 tabs sumatriptan succinate 50 mg tablet 50 mg PO Q2H PRN migraine headache 10/01/22 (Imitrex) #10 tabs oseltamivir 75 mg capsule (Tamiflu) 75 mg PO DAILY 5 days #5 caps 02/25/23 ondansetron 4 mg disintegrating 4 mg PO Q8H PRN nausea and 02/26/23 tablet vomiting #12 tabs Allergies Allergy/AdvReac Type Severity Reaction Status Date / Time No Known Allergies Allergy Verified 02/26/23 19:47 Review of Systems 2 Cardiovascular: Cardiovascular: Denies dyspnea Respiratory: Respiratory: Reports cough, Denies pain with cough and Denies dyspnea Gastrointestinal: Gastrointestinal: Denies abdominal pain, Denies diarrhea, Reports nausea and Reports vomiting Genitourinary: Genitourinary: Denies dysuria PMFSH Social History Social History Substance Use Type: Marijuana Advance Directives: No Advance Directives Information Provided: No Physical Exam ED Vital Signs: Vital Signs - 24 hr 02/26/23 19:44 02/26/23 22:37 Temperature 99.7 F 99.5 F Pulse Rate 86 76 Respiratory Rate 18 18 Blood Pressure 129/71 120/40 L Pulse Oximetry 96 99 Oxygen Delivery Method Room Air Room Air BMI result Body Mass Index 22.1 Const General: alert and awake HENMT Other: Mucous membranes dry Resp Auscultation: clear to auscultation bilaterally Cardio Rate: regular rate Rhythm: regular rhythm GI Other: Abdomen is soft throughout, nontender. No guarding or rebound. No Chapman sign. No CVAT. Skin Rashes: no rashes Course Course Course Narrative: This is a rapid medical exam: Additional HPI, ROS, PE not included below will be deferred to primary provider. Patient is a 32-year-old female presenting to the ED with complaint of nausea and vomiting. Was seen here yesterday, tested positive for flu, and was prescribed Tamiflu. Has been unable to tolerate any fluids today. States she has also had a sore throat for a week, was seen at urgent care and treated with azithromycin, zyrtec and flonase. Plan: strep swab, basic labs Reevaluation(s) Reevaluation #1: Patient with good improvement after IV fluids and antiemetics. She feels comfortable with discharge plan home. No further questions at this time. Medications Administered Discontinued Medications Generic Name Dose Route Start Last Admin Trade Name Freq PRN Reason Stop Dose Admin Sodium Chloride 1,000 mls @ 999 mls/hr 02/26/23 21:45 02/26/23 23:03 Ns IV 02/26/23 22:45 Infused .Q1H1M CAROLYN Infusion Ondansetron HCl 4 mg 02/26/23 21:42 02/26/23 21:52 Ondansetron Hcl 4 Mg/2 Ml Vial IVPUSH 02/26/23 21:43 4 mg ONCE ONE Administration Medical Decision Making Medical Decision Making [facility] Narrative: With a 32-year-old female with recent diagnosis of influenza a, currently on Tamiflu, presenting with nausea and vomiting. Patient is hemodynamically stable. Suspect could be worsening from medication. IV fluids and Zofran. Patient will likely be able to be discharged home. Abdominal exam is reassuring as well as labs. Differential Diagnosis Differential Diagnoses: The differential diagnosis associated with the presentation includes Medication reaction Dehydration Metabolic abnormality Influenza Admission/Observation Consideration of admission/observation: Escalation of care including admission/observation considered Consideration for admission if medically necessary. Lab Data [facility] Lab Attestation statement: I reviewed the patient's lab results. 02/26/23 20:44 02/26/23 20:44 Labs: Lab Results 02/26/23 Range/Units 20:44 WBC 4.1 L (4.8-10.8) X10*3/uL RBC 4.38 (4.20-5.50) X10*6/uL Hgb 11.5 L (12.0-16.0) g/dl Hct 35.0 L (37.0-47.0) % MCV 79.9 L (80.0-98.0) fL MCH 26.3 L (27.0-33.0) pg MCHC 32.9 (31.0-35.0) g/dl RDW 14.3 (11.0-16.0) % Plt Count 228 (160-400) X10*3/uL MPV 9.1 L (9.4-12.3) fL Immature Gran % (Auto) 0.2 (0.0-0.4) % Neut % (Auto) 62.5 (45-73) % Lymph % (Auto) 19.0 L (20-40) % [place] % (Auto) 17.8 H (2-11) % Eos % (Auto) 0.0 (0-4) % Baso % (Auto) 0.5 (0-2) % Lymph # (Auto) 0.8 L (1.2-4.9) X10*3/uL [place] # (Auto) 0.7 (0.1-1.2) X10*3/uL Eos # (Auto) 0.0 (0.0-0.4) X10*3/uL Baso # (Auto) 0.0 (0.0-0.2) X10*3/uL Abs Immat Gran (auto) 0.01 (0.00-0.03) X10*3/uL Absolute Neuts (auto) 2.6 (2.0-8.3) x10*3/uL Absolute Nucleated RBC 0.000 (0.0-0.012) X10*3/uL Nucleated RBC % (auto) 0.0 (0.0-0.2) /100WBC Sodium 138 (135-145) mmol/L Potassium 3.5 (3.3-5.1) mmol/L Chloride 107 (96-108) mmol/L Carbon Dioxide 24 (22-29) mmol/L Anion Gap 11 L (12-20) BUN 11 (9-16) mg/dL Creatinine 0.81 (0.5-1.4) mg/dL Estim Creat Clear Calc 74.5 Estimated GFR > 60 Random Glucose 94 (60-115) mg/dL Calcium 10.1 (8.4-10.2) mg/dL Total Bilirubin 0.2 (0.0-1.0) mg/dL AST 21 (5-31) U/L ALT 8 (0-31) U/L Alkaline Phosphatase 55 (39-117) U/L Total Protein 7.9 (6.5-8.0) g/dL Albumin 4.2 (3.5-5.0) g/dL Beta HCG, Quant < 2 mIU/mL S. pyogenes GrpA JOSE Negative (Negative) Discharge Plan Discharge Clinical Impression: Nausea & vomiting Qualifiers: Vomiting type: unspecified Qualified Code(s): R11.2 - Nausea with vomiting, unspecified Patient Disposition: Home, Self-Care Instructions: Acute Nausea and Vomiting (ED) Additional Instructions: Clear liquids. [place] diet. Gradually advanced. Zofran as directed for nausea. Follow-up with your primary care provider. Call this week to schedule a follow- up appointment. Return to the emergency department if you have any worsening of symptoms, or any concerns. Get well soon! Prescriptions: New ondansetron 4 mg tablet,disintegrating 4 mg PO Q8H PRN (Reason: nausea and vomiting) Qty: 12 0RF No Action ondansetron 4 mg tablet,disintegrating 4 mg PO Q6-8H PRN (Reason: nausea and vomiting) Qty: 10 0RF oseltamivir [Tamiflu] 75 mg capsule 75 mg PO DAILY 5 Days Qty: 5 0RF sumatriptan succinate [Imitrex] 50 mg tablet 50 mg PO Q2H PRN (Reason: migraine headache) Qty: 10 0RF Rx Instructions: do not exceed 2 doses per 24 hrs accttgohhg-mhogvhuxkkbge-gigz 50-325-40 mg tablet 1 tab PO Q6H PRN (Reason: pain) Qty: 20 0RF ondansetron 4 mg tablet,disintegrating 4 mg PO Q6-8H PRN (Reason: nausea and vomiting) Qty: 10 0RF Stand Alone Forms: Work/School Release Interventions: ED Discharge Assessment Last Done: 02/26/23 23:03 Discharge Date/Time: 02/26/23 23:04
--- NOTE | 2023-02-26 20:45 | MHC.EDTECH ---
Patient brought into triage area,labs and a strep were obtained and sent to lab. Patient brought back to waiting area.
[2023-02-26 20:52] LABS: MANUAL DIFF FLAG NO
[2023-02-26 20:54] LABS: Basophils Percent Auto 0.5 % (0-2); Hemoglobin 11.5 g/dl (12.0-16.0); Imm Gran Abs Auto 0.01 X10*3/uL (0.00-0.03); Imm Gran Pct Auto 0.2 % (0.0-0.4); Lymphocytes Absolute Auto 0.8 X10*3/uL (1.2-4.9); Mean Corpuscular HGB Conc 32.9 g/dl (31.0-35.0); Mean Corpuscular Hemoglobin 26.3 pg (27.0-33.0); Mean Corpuscular Volume 79.9 fL (80.0-98.0); Mean Platelet Volume 9.1 fL (9.4-12.3); Monocytes Absolute Auto 0.7 X10*3/uL (0.1-1.2); Monocytes Percent Auto 17.8 % (2-11); Neutrophils Absolute Auto 2.6 x10*3/uL (2.0-8.3); Neutrophils Percent Auto 62.5 % (45-73); Platelet Count 228 X10*3/uL (160-400); Red Blood Count 4.38 X10*6/uL (4.20-5.50); Red Cell Distribution Width 14.3 % (11.0-16.0); White Blood Count 4.1 X10*3/uL (4.8-10.8)
[2023-02-26 21:04] LABS: IDNOW Serial# 6674DD1D; Strep A Nucleic Acid Negative (Negative)
[2023-02-26 21:09] LABS: Alanine Aminotransferase 8 U/L (0-31); Albumin Level 4.2 g/dL (3.5-5.0); Alkaline Phosphatase 55 U/L (39-117); Anion Gap 11 (12-20); Aspartate Amino Transferase 21 U/L (5-31); Bilirubin Total 0.2 mg/dL (0.0-1.0); Blood Urea Nitrogen 11 mg/dL (9-16); Calcium 10.1 mg/dL (8.4-10.2); Carbon Dioxide 24 mmol/L (22-29); Chloride 107 mmol/L (96-108); Creatinine Clr Calc Pharmacy 74.5; Estimated Glomerular Filt Rate > 60; Glucose Random 94 mg/dL (60-115); Potassium 3.5 mmol/L (3.3-5.1); Sodium 138 mmol/L (135-145); Total Protein 7.9 g/dL (6.5-8.0)
[2023-02-26 21:19] LABS: HCG Quantitative < 2 mIU/mL
[2023-02-26] MEDS: 0.9 % Sodium Chloride 1,000 ML 999 ML IV (21:52)
[2023-02-26] MEDS: ondansetron HCL 4 MG/2 ML VIAL IVPUSH (21:52)
[2023-02-26 22:37] VITALS: BP 120/40; PULSE 76; RESP 18; TEMP 37.5; O2SAT 99
== END 2023-02-26 23:04 | disposition home or self-care (01) ==
PROVIDERS: Registered Nurse Emergency; Emergency Provider Emergency Medicine
DX: R11.2 Nausea with vomiting, unspecified (principal)
CPT/HCPCS: 36415; 80053; 84702; 85025; 87651; 96361; 96374; 99283; 99284; J2405